=== PATIENT | male | born 2000 | race Hispanic/Latino ===

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

== ENCOUNTER 2022-05-12 00:45 | Emergency (ER) | payer MEDICAID, OTHER ==
[2022-05-12] MEDS ORDERED: PREDNISONE 20 MG TABLET PO ONE (02:30)
[2022-05-12] MEDS ORDERED: PRED20TA3 PO (03:03)
[2022-05-12 03:18] VITALS: BP 131/63
== END 2022-05-12 03:44 | disposition home or self-care (01) ==
LOC: EDH 00:45
DX: T78.49XA Other allergy, initial encounter (principal); Z79.52 Long term (current) use of systemic steroids; Z91.010 Allergy to peanuts; X58.XXXA Exposure to other specified factors, initial encounter

== ENCOUNTER 2023-01-25 00:20 | Emergency (ER) | payer OTHER ==
[~2023-01-25] VITALS: Ht 167.6 cm; Wt 69.4 kg
[~2023-01-25 00:20] MED LIST: PRED20TA3 PO
== END 2023-01-25 04:48 | disposition left against medical advice (07) ==
LOC: EDH 00:20
DX: H92.09 Otalgia, unspecified ear (principal); Z53.21 Procedure and treatment not carried out due to patient leaving prior to being seen by health care provider
CPT/HCPCS: 99281

== ENCOUNTER 2024-01-01 15:57 | Emergency (ER) | payer OTHER ==
[~2024-01-01] VITALS: Ht 167.6 cm; Wt 84.8 kg
[2024-01-01] MEDS ORDERED: AMOX1TAB16 PO (20:13)
[2024-01-01 21:12] VITALS: BP 134/95; PULSE 67; RESP 18; O2SAT 98
[2024-01-01] MEDS: DIPH,PERTUSS(ACELL),TET VAC/PF 0.5 ML VIAL IM ONE (21:19)
== END 2024-01-01 21:41 | disposition home or self-care (01) ==
LOC: EDH 15:57
DX: L03.211 Cellulitis of face (principal); F17.200 Nicotine dependence, unspecified, uncomplicated; Z79.899 Other long term (current) drug therapy; Z98.890 Other specified postprocedural states; Z91.010 Allergy to peanuts
CPT/HCPCS: 90471; 90715

== ENCOUNTER 2024-02-28 19:07 | Emergency (ER) | payer OTHER ==
[~2024-02-28] VITALS: Ht 167.6 cm; Wt 81.6 kg
[~2024-02-28 19:07] MED LIST changes: +AMOX1TAB16 PO
[2024-02-28 19:14] VITALS: BP 119/63; PULSE 74; RESP 20
[2024-02-28] MEDS ORDERED: CEPH500B PO (19:17)
[2024-02-28] MEDS: CEPHALEXIN 500 MG CAPSULE PO ONE (19:37)
== END 2024-02-28 19:38 | disposition home or self-care (01) ==
LOC: EDH 19:07
DX: S51.812D Laceration without foreign body of left forearm, subsequent encounter (principal); X58.XXXD Exposure to other specified factors, subsequent encounter

== ENCOUNTER 2024-11-20 00:49 | Emergency (ER) | payer SELFPAY ==
[~2024-11-20] VITALS: Ht 167.6 cm; Wt 65.8 kg
[~2024-11-20 00:49] MED LIST changes: +CEPH500B PO
[2024-11-20] MEDS ORDERED: dexaMETHasone SOD PHOSPHATE 4 MG/ML 1ML VIAL IVP ONE (01:00)
[2024-11-20] MEDS ORDERED: EPINEPHrine 1MG/10ML(1:10,000) 0.1 MG/ML SYG IVP ONE (01:00)
[2024-11-20 01:02] VITALS: BP 135/80; PULSE 115; RESP 18; TEMP 98.8; O2SAT 100
[2024-11-20] MEDS: Solu-medROL 125MG VIAL ONE (01:06)
[2024-11-20] MEDS: DiphenhydrAMINE HCL 50 MG/ML VIAL IV ONE (01:06)
[2024-11-20] MEDS: FAMOTIDINE 20MG VIAL IV ONE (01:06)
[2024-11-20] MEDS: EPINEPHrine PF 1MG (1:1,000) 1 MG/ML AMP ONE (01:24)
[2024-11-20] MEDS: 0.9%NACL 1000ML 1,000 ML IV ONE (01:24)
[2024-11-20] MEDS: Solu-medROL 125MG VIAL IVP ONE (01:25)
[2024-11-20] MEDS: EPINEPHrine PF 1MG (1:1,000) 1 MG/ML AMP IM ONE (01:25)
[2024-11-20] MEDS: RACEPINEPHRINE HCL 2.25% 0.5 ML NEB SOLN NEB ONE (02:49)
[2024-11-20] MEDS ORDERED: METH4TAB3 PO (03:00)
[2024-11-20] MEDS ORDERED: DIPH-1242 PO (03:00)
--- NOTE | 2024-11-20 03:00 | ERN ---
General Chief Complaint: Allergic Reaction Stated Complaint: ALLERGIC REACTION NUTS Time Seen by MD: 00:54 Time Seen by Midlevel: 00:54 Source: patient History of Present Illness Initial Comments Patient is a 24-year-old male presenting to the emergency department with an allergic reaction. Patient ate a coffee cake and was unaware it had peanuts in it. He does report having an allergy to peanuts and has previously had an anaphylaxis. Patient presents with coughing, hives to body itchy throat and a feeling of throat tightness. Allergies: Coded Allergies: peanut (Unverified Allergy, Unknown, 05/12/22) Home Meds Active Scripts Methylprednisolone (Medrol) 4 Mg Tab.ds.pk, 1 TAB PO AD for 6 Days, #21 TAB 0 Refills 6 on day 1 then reduce by one tablet daily until gone Prov:ARTURO BROWN 11/20/24 Diphenhydramine HCl (Benadryl) 25 Mg Cap, 25 MG PO BID for 5 Days, #10 CAP Prov:ARTURO BROWN 11/20/24 Cephalexin Monohydrate (Keflex) 500 Mg Cap, 500 MG PO QID for 7 Days, #28 CAP Prov:HARMONY JOHNSON NP 02/28/24 Amoxicillin/Potassium Clav (Amox Tr-K Clv 875-125 mg Tab) 875 Mg-125 Mg Tablet, 1 EACH PO BID, #20 TAB Prov:MARK LANZA MD 01/01/24 Prednisone (Prednisone) 20 Mg Tablet, 40 MG PO DAILY for 4 Days, #8 TAB 0 Refills Prov:ALFRED MAI MD 05/12/22 Past Medical History Past Medical History: No Pertinent History Medical History Other: PSYCH HISTORY Past Surgical History: None Family History Family History: Negative Social History Social History: Smokers, ETOH, Other ROS Dictation CONSTITUTIONAL: Negative except for HPI HEAD/FACE: Negative except for HPI EENT: Negative except for HPI RESPIRATORY: Negative except for HPI GASTROINTESTINAL/ABDOMINAL: Negative except for HPI GENITOURINARY: Negative except for HPI MUSCULOSKELETAL: Negative except for HPI INTEGUMENTARY: Negative except for HPI NEUROLOGICAL/PSYCH: Negative except for HPI HEMATOLOGIC/LYMPHATIC: Negative except for HPI All Systems Negative, Except as noted above. 13 point review of systems assessed and all negative except for above. Physical Exam Physical Exam Dictation Vital Signs reviewed General Appearance: Alert, oriented x 3, no acute distress, well developed, nourished. Head and Face: non-traumatic. Eyes: PERRL, pink conjunctivas, eyelid no trauma, anterior chamber with arcus senilis. Ears: Pinnas intact and no signs of trauma or erythema ear canals clear and no discharge TM no erythema Nose: No discharge, no bleeding. Oropharynx: Mouth normal, tongue pink, pharynx clear,no erythema, tonsils no exudates, no abscesses noted, mucous membrane moist Neck: Supple, non-tender, no thyromegaly, no masses, no JVD, no bruits Breast:Deferred Chest:No tenderness, no crepitus, no paradoxical movement, no retractions Lungs:Clear, well-ventilated, symmetric, no rales, no wheezing, no rhonchi, no stridor, good breath sounds bilaterally Heart: Regular rate, regular rhythm, no murmur, no gallops Vascular: no peripheral edema, Abdomen: Soft, positive bowel sounds, nondistended, no guarding, nontender, no rebound, no masses no hepatomegaly, no splenomegaly, no Ann's sign, no hernias. Rectal: Deferred Genital: Deferred Neurological: Normal speech, motor function intact, sensory function intact Musculoskeletal: Neck nontender, full range of motion, back nontender, full range of motion, Extremities: nontender, full range of motion Skin: Color pink, dry, no turgor, no rash, no lacerations, no abrasions, no contusions. Lymphatic: Deferred MDM MDM: Differential diagnosis: Anaphylaxis, allergic reaction, hives There are no social concerns with this patient. Prescription drug management Prescriptions will include: Medrol pack, Benadryl, Medical management and examination interpretation discussions were had by me with other qualified healthcare professionals as indicated for the patient's care. ED Course Orders Procedure Category Date Status Time Diphenhydramine Hcl PHA 11/20/24 Complete (Benadryl Inj) 01:00 Dexamethasone 4mg/Ml PHA 11/20/24 Complete 1ml Vial (Dexametha 01:00 Famotidine 20mg Vial PHA 11/20/24 Complete (Pepcid 20mg Vial) 01:00 Racepinephrine Hcl PHA 11/20/24 Complete (Racepinephrine Neb S 01:00 Methylprednisolone PHA 11/20/24 Complete Succ 125mg (Solu-Medr 01:00 Epinephrine PHA 3/10/25 Complete 1mg/10ml(1:10,000) 01:00 0.9%Nacl 1000ml (Ns PHA 11/20/24 Complete 1000ml) 01:00 Epinephrine Pf 1mg PHA 11/20/24 Complete (1:1,000) (Adrenaline 01:00 Epinephrine Pf 1mg PHA 11/20/24 Complete (1:1,000) (Adrenaline 00:58 Methylprednisolone PHA 11/20/24 Complete Succ 125mg (Solu-Medr 00:59 Current Medications Medications (Trade) Dose Ordered Sig/Kayley Route PRN Reason Start Time Stop Time Status Last Admin Dose Admin Dexamethasone Sodium Phosphate (dexaMETHasone 4MG/ML 1ML VIAL) 6 mg ONCE ONCE IVP 11/20/24 01:00 11/20/24 00:56 DC Diphenhydramine HCl (BENAdryl INJ) 50 mg ONCE ONCE IV 11/20/24 01:00 11/20/24 01:01 DC 11/20/24 01:06 Epinephrine (Racepinephrine Neb Soln) 0.5ML ONCE ONCE NEB 11/20/24 01:00 11/20/24 01:01 DC Epinephrine HCl (ADRENaline 1MG SYG) 0.5 mg ONCE ONCE IVP 11/20/24 01:00 11/20/24 00:58 DC Epinephrine HCl (ADRENaline PF 1MG AMP) 0.5 mg ONCE ONCE IM 11/20/24 01:00 11/20/24 01:12 DC 11/20/24 01:25 Epinephrine HCl (ADRENaline PF 1MG AMP) 1 mg STK-MED ONCE .ROUTE 11/20/24 00:58 11/20/24 01:01 DC Famotidine (Pepcid 20mg Vial) 20 mg ONCE ONCE IV 11/20/24 01:00 11/20/24 01:01 DC 11/20/24 01:06 Methylprednisolone Sodium Succinate (Solu-medROL 125MG) 125 mg ONCE ONCE IVP 11/20/24 01:00 11/20/24 01:12 DC 11/20/24 01:25 Methylprednisolone Sodium Succinate (Solu-medROL 125MG) 125 mg STK-MED ONCE .ROUTE 11/20/24 00:59 11/20/24 01:01 DC 11/20/24 01:06 Sodium Chloride 1,000 ml @ 0 mls/hr ONCE ONCE IV 11/20/24 01:00 11/20/24 01:12 DC 11/20/24 01:24 Vital Signs Date Time Temp Pulse Resp B/P (MAP) Pulse Ox O2 Delivery O2 Flow Rate FiO2 11/20/24 01:02 98.8 115 18 135/80 100 Room Air* 0 21 11/20/24 00:51 99.0 97 20 102/78 97 Room Air DX & DISP Disposition: Discharge Departure Impression: Primary Impression: Acute allergic reaction Condition: Stable Scripts Methylprednisolone (Medrol) 4 Mg Tab.ds.pk 1 TAB PO AD for 6 Days, #21 TAB 0 Refills 6 on day 1 then reduce by one tablet daily until gone Prov: ARTURO BROWN 11/20/24 Diphenhydramine HCl (Benadryl) 25 Mg Cap 25 MG PO BID for 5 Days, #10 CAP Prov: ARTURO BROWN 11/20/24 Referrals: SELF,REFERRAL (PCP) Time of Disposition: 03:00 I have reviewed the case, and I agree with, Diagnosis and Plan I performed the substantive portion of the visit. I have reviewed and personally made and approve the management plan that is documented in the note by myself or the ADITYA. I acknowledge for responsibility for the patient's management plan. ARTURO BROWN Nov 20, 2024 03:00
== END 2024-11-20 03:08 | disposition home or self-care (01) ==
LOC: EDH 00:49
DX: T78.1XXA Other adverse food reactions, not elsewhere classified, initial encounter (principal); F17.200 Nicotine dependence, unspecified, uncomplicated; Z79.52 Long term (current) use of systemic steroids; Z91.010 Allergy to peanuts; X58.XXXA Exposure to other specified factors, initial encounter
CPT/HCPCS: 99284; 96374; 96375; 96361; 96372; J2919; J1200; J3490; J7030; J0171

== ENCOUNTER 2025-02-11 15:07 | Emergency (ER) | payer SELFPAY ==
[~2025-02-11] VITALS: Ht 167.6 cm; Wt 70.8 kg
[~2025-02-11 15:07] MED LIST changes: +DIPH-1242 PO; +METH4TAB3 PO
--- NOTE | 2025-02-11 15:43 | NUR ---
PT NOTED TO HAVE MULTIPLE SCARS TO BILAT FORARMS VARIOUS AGE AND STAGES OF HEALINT PT EXPRESSED LIKED THE WAY PAIN RELAXES AND ELIVIATED ANXIETY NO EXPRESSION OF SI/HI
[2025-02-11] MEDS: diazePAM 2 MG TAB PO ONE (16:04)
[2025-02-11 16:07] VITALS: BP 120/70; PULSE 72; RESP 18; TEMP 98.1; O2SAT 98
--- NOTE | 2025-02-11 16:27 | NUR ---
AFTER MEDICATION ADMINSTRATION PT ADVISED ANXIETY RELIEVED AND FEELS CALLM AND NO NEED FOR ACTING OUT IN ANY WAY DUE TO PREVIOUS ANXIETY.
--- NOTE | 2025-02-11 16:37 | ERN ---
General Chief Complaint: Anxiety/Panic Attack Stated Complaint: TRIED TO CUT BOTH WRISTS Time Seen by MD: 15:13 Source: patient History of Present Illness Initial Comments Patient is a 24-year-old male coming in to be evaluated for anxiety. Per patien t he has history splitting which leads him to self-harm. States the last time he did it was two weeks ago and states that he has been under lot of stress in his family and knows he needs to change. Allergies: Coded Allergies: peanut (Unverified Allergy, Unknown, 05/12/22) Home Meds Active Scripts Methylprednisolone (Medrol) 4 Mg Tab.ds.pk, 1 TAB PO AD for 6 Days, #21 TAB 0 Refills 6 on day 1 then reduce by one tablet daily until gone Prov:ARTURO BROWN 11/20/24 Diphenhydramine HCl (Benadryl) 25 Mg Cap, 25 MG PO BID for 5 Days, #10 CAP Prov:ARTURO BROWN 11/20/24 Cephalexin Monohydrate (Keflex) 500 Mg Cap, 500 MG PO QID for 7 Days, #28 CAP Prov:HARMONY JOHNSON NP 02/28/24 Amoxicillin/Potassium Clav (Amox Tr-K Clv 875-125 mg Tab) 875 Mg-125 Mg Tablet, 1 EACH PO BID, #20 TAB Prov:MARK LANZA MD 01/01/24 Prednisone (Prednisone) 20 Mg Tablet, 40 MG PO DAILY for 4 Days, #8 TAB 0 Refills Prov:ALFRED MAI MD 05/12/22 Past Medical History Past Medical History: No Pertinent History Medical History Other: PSYCH HISTORY Past Surgical History: None Family History Family History: Negative Social History Social History: Smokers, ETOH, Other ROS Dictation CONSTITUTIONAL: No chills, no fever, no weakness, no diaphoresis, no malaise. HEAD/FACE: No signs of trauma. EENT: No eye pain, no blurred vision, no tearing, no double vision, no ear pain, no ear discharge, no nose pain, no nasal congestion, no throat pain, no throat swelling, no mouth pain. RESPIRATORY: No cough, no orthopnea, no SOB, no stridor, no wheezing. CARDIOVASCULAR: No chest pain, no edema, no palpitations, no syncope. GASTROINTESTINAL/ABDOMINAL: No abdominal pain, no constipation, no diarrhea, no nausea, no vomiting. GENITOURINARY: No abnormal discharge, no dysuria, no frequent urination, no hematuria. No complaints of pain in the genitals. MUSCULOSKELETAL: No back pain, no gout, no joint pain, no joint swelling, no muscle pain, no muscle stiffness, no neck pain. INTEGUMENTARY: No change in color, no change in hair/nails, no dryness, no lesion, no lumps, no rash. NEUROLOGICAL/PSYCH: No anxiety, not depressed, no emotional problem, no headache, no numbness, no pre-existing deficit, no history of seizures, no tremors, no weakness. HEMATOLOGIC/LYMPHATIC: Not anemic, no history of blood clots, no apparent bleeding, no bruising, glands not swollen. All Systems Negative, Except as Noted. Physical Exam Physical Exam Dictation VITAL SIGNS: Reviewed. GENERAL APPEARANCE: Alert, oriented x3, no acute distress, obese. HEAD AND FACE: Non-traumatic. EYES: PERRL, pink conjunctivas, eyelid no trauma, anterior chamber clear. EARS: Pinnas intact and no signs of trauma or erythema. Ear canals clear and no discharge. TMs no erythema. NOSE: No discharge, no bleeding. OROPHARYNX: Mouth normal, teeth no caries, tongue pink. Pharynx clear, no erythema. Tonsils no exudates, no abscesses noted. Mucous membrane moist. NECK: Supple, non-tender, no thyromegaly, no masses, no JVD, no bruits. BREAST: Deferred. CHEST: No tenderness, no crepitus, no paradoxical movement, no retractions. LUNGS: Clear, well-ventilated, symmetric, no rales, no wheezing, no rhonchi, no stridor, good breath sounds bilaterally. HEART: Regular rate, regular rhythm, no murmur, no gallops. VASCULAR: No peripheral edema. ABDOMEN: Soft, positive bowel sounds, nondistended, no guarding, nontender, no rebound, no masses no hepatomegaly, no splenomegaly, no Ann's sign, no hernias. RECTAL: Deferred. GENITAL: Deferred. NEUROLOGICAL: Normal speech, gross motor function intact, gross sensory function intact. MUSCULOSKELETAL: Neck nontender, full range of motion, back nontender, full range of motion. EXTREMITIES: Nontender, full range of motion. SKIN: Color pink, dry, no turgor, no rash, no lacerations, no abrasions, no contusions. LYMPHATICS: Deferred. MDM MDM: Differential diagnosis: Anxiety, splitting, psychiatric illness Rationale: Tests considered and ordered secondary to shared decision making include: Previous outside records reviewed: Old ER visits. Risk of complication and/or morbidity or mortality of patient management: None Medications-Per medication reconciliation Patient is a 24-year-old male coming in to be evaluated for anxiety and stress. Patient was counseled about ways to relieve stress states he feels much better with the talk and appreciate some time. Patient will be discharged in stable condition plan is to follow up with PCP and psychiatrist. ED Course Orders Procedure Category Date Status Time Diazepam 2 Mg Tab PHA 02/11/25 Complete (Valium 2 Mg Tab) 16:00 Current Medications Medications (Trade) Dose Ordered Sig/Kayley Route PRN Reason Start Time Stop Time Status Last Admin Dose Admin Diazepam (VALium 2 mg Tab) 2 mg ONCE ONCE PO 02/11/25 16:00 02/11/25 16:01 DC 02/11/25 16:04 Vital Signs Date Time Temp Pulse Resp B/P (MAP) Pulse Ox O2 Delivery O2 Flow Rate FiO2 02/11/25 16:07 98.1 72 18 120/70 98 Room Air* 0 21 02/11/25 15:10 98.8 76 17 123/73 Room Air DX & DISP Disposition: Discharge Departure Impression: Primary Impression: Anxiety Condition: Stable Additional Instructions: FOLLOW-UP WITH PRIMARY CARE PROVIDER IN 1 TO 2 DAYS. TAKE MEDICATIONS DIRECTED HERE IN THE EMERGENCY ROOM. OKAY TO CONTINUE HOME MEDICATIONS UNLESS OTHERWISE DISCUSSED DURING YOUR VISIT IN THE EMERGENCY ROOM TODAY. RETURN TO YOUR NEAREST EMERGENCY ROOM IF SYMPTOMS WORSEN OR IF THERE IS NO IMPROVEMENT. CALL 911 IF YOU NEED IMMEDIATE ASSISTANCE. TAKE TYLENOL [id number] NEEDED AND IF NO CONTRAINDICATIONS ARE PRESENT. INCREASE ORAL HYDRATION. A WOUND CULTURE OR URINE CULTURE WAS ORDERED HERE IN THE EMERGENCY ROOM DEPARTMENT PLEASE FOLLOW-UP WITH PRIMARY CARE PROVIDER AND ADVISE THEM TO GET REPEAT PORTS FROM OUR FACILITY. IF YOU HAD ANY KALI WRAP/SPLINTS THAT WERE APPLIED HERE, PLEASE DO NOT REMOVE THEM UNTIL YOU SEE YOUR PRIMARY CARE OR SPECIALTY. Referrals: Referrals: SELF,REFERRAL (PCP) ARTURO MARIA MD Time of Disposition: 16:36 ELOY MONSALVE MD Feb 11, 2025 16:37
== END 2025-02-11 16:50 | disposition home or self-care (01) ==
LOC: EDH 15:07
DX: F41.9 Anxiety disorder, unspecified (principal); F17.200 Nicotine dependence, unspecified, uncomplicated; Z79.52 Long term (current) use of systemic steroids
CPT/HCPCS: 99283